=== PATIENT | female | born 1955 | race Caucasian/White ===

== ENCOUNTER 2017-04-23 14:41 | Emergency (ER) | payer MEDICARE, MEDICAID ==
[~2017-04-23] VITALS: Ht 167.6 cm; Wt 88.0 kg
[~2017-04-23 14:41] MED LIST: ADVA100A INH; LEVO88TA2 PO; LISI40TA PO; MEDR4PAK PO; PANT40TA3 PO; SIMV20TA PO; TEGR200T PO; TRAM50TA PO; VENL75TA PO
[2017-04-23 15:38] VITALS: BP 150/79; PULSE 66; RESP 18; TEMP 98.3; O2SAT 95
--- NOTE | 2017-04-23 15:44 | PD ---
HPI Chief Complaint: GI Complaint Time Seen by Provider: 15:43 Travel History International Travel<30 days: No Contact w/Intl Traveler<30days: No Traveled to known affect area: No History of Present Illness HPI 61-year-old female came to the emergency room with history of vomiting today 2- 3 that is nonbilious and nonbloody. Patient says she has been feeling weak for past 4-5 days and has been having dark color stool. She never noticed agueda blood in her stool. Vital signs were otherwise stable. Complaining of some epigastric pain that is nonradiating. PFSH Past Medical History Narrative Medical List of her past medical, surgical, social and family history was reviewed from the nursing note. Hx Anticoagulant Therapy: Yes (BABY ASA DAILY) Asthma: Yes Anxiety: Yes Depression: Yes Cardiac Catheterization: Yes (STENT) Cardiovascular Problems: Yes (HTN) Coronary Artery Disease: Yes Diabetes: No Diminished Hearing: No Deep Vein Thrombosis: Yes Fibromyalgia: Yes GERD: Yes Hypertension: Yes Respiratory: Yes (ASTHMA) Integumentary: Yes (SKIN BURN - DUE TO COOKING ) Seizures: Yes (LAST SEIZURE 12/29/2007) Thyroid Disease: Yes Tetanus Vaccination: < 5 Years Influenza Vaccination: Yes ?: Not Past Surgical History Coronary Stent: Yes Hysterectomy: Yes Other Surgery: Yes (SKIN GRAFTING, BREAST AUGMENTATION) Social History Alcohol Use: No Tobacco Use: No (QUIT 1985) Substance Use: No Allergies-Medications (Allergen,Severity, Reaction): Coded Allergies: Adhesives (Verified Allergy, Severe, 04/23/17) SKIN IRRITATION Dilantin (Verified Allergy, Severe, Hives, 04/23/17) Keppra (Verified Allergy, Unknown, 04/23/17) Codeine (Verified Adverse Reaction, Intermediate, ALTERED MENTAL STATUS, ) *MDRO Multi-Drug Resistant Organism (Verified Adverse Reaction, Unknown, ) ESBL+E.Coli (urine-09/02/16) Phenobarbital (Verified Adverse Reaction, Unknown, 04/23/17) Comments List of her allergies reviewed from the nursing note. Reported Meds & Prescriptions Reported Meds & Active Scripts Active Zofran Odt (Ondansetron Odt) 4 Mg Tab 4 Mg SL Q6HR PRN Simvastatin 20 Mg Tab 20 Mg PO DAILY Pantoprazole (Pantoprazole Sodium) 40 Mg Tab 40 Mg PO DAILY Effexor (Venlafaxine HCl) 75 Mg Tab 75 Mg PO BID Tramadol (Tramadol HCl) 50 Mg Tab 50 Mg PO Q8H PRN Lisinopril 40 Mg Tab 40 Mg PO DAILY Reported Aspirin 81 Mg Chew 81 Mg CHEW DAILY Tegretol (Carbamazepine) 200 Mg Tab 150 Mg PO BID Levothyroxine (Levothyroxine Sodium) 88 Mcg Tab 45 Mcg PO DAILY Advair Diskus Inh (Fluticasone-Salmeterol Inh) 100-50 Mcg/Blist Aer 1 Puff INH BID Rinse mouth after use. Narrative Medication List of her home medications reviewed from the nursing note. Review of Systems Except as stated in HPI: all other systems reviewed are Neg Physical Exam Narrative GENERAL: Awake, alert, moderate distress SKIN: Focused skin assessment warm/dry. HEAD: Atraumatic. Normocephalic. EYES: Pupils equal and round. No scleral icterus. No injection or drainage. ENT: No nasal bleeding or discharge. Dry mucous membrane NECK: Trachea midline. No JVD. CARDIOVASCULAR: Regular rate and rhythm. No murmur appreciated. RESPIRATORY: No accessory muscle use. Clear to auscultation. Breath sounds equal bilaterally. GASTROINTESTINAL: Abdomen soft, epigastric tenderness, nondistended. Hepatic and splenic margins not palpable. MUSCULOSKELETAL: No obvious deformities. No clubbing. No cyanosis. No edema. NEUROLOGICAL: Awake and alert. No obvious cranial nerve deficits. Motor grossly within normal limits. Normal speech. PSYCHIATRIC: Appropriate mood and affect; insight and judgment normal. Data Data Last Documented VS Vital Signs Date Time Temp Pulse Resp B/P Pulse Ox O2 Delivery O2 Flow Rate FiO2 04/23/17 19:01 99 04/23/17 18:46 76 18 192/84 04/23/17 17:26 Room Air 04/23/17 15:38 98.3 Orders Complete Blood Count With Diff (04/23/17 15:56) Comprehensive Metabolic Panel (04/23/17 15:56) Lipase (04/23/17 15:56) Urinalysis - C+S If Indicated (04/23/17 15:56) Ct Abd/Pel W/O Iv Contrast (04/23/17 15:56) Iv Access Insert/Monitor (04/23/17 15:56) Ecg Monitoring (04/23/17 15:56) Oximetry (04/23/17 15:56) Sodium Chlor 0.9% 1000 Ml Inj (Ns 1000 M (04/23/17 15:56) Sodium Chloride 0.9% Flush (Ns Flush) (04/23/17 16:00) Electrocardiogram (04/23/17 ) Troponin I (04/23/17 15:56) Chest, Single Ap (04/23/17 ) Ondansetron Inj (Zofran Inj) (04/23/17 16:30) Pantoprazole Inj (Protonix Inj) (04/23/17 16:30) Urine Culture (04/23/17 17:15) Labs Laboratory Tests Test 04/23/17 04/23/17 16:05 17:15 Sodium Level 133 MEQ/L Potassium Level 3.5 MEQ/L Chloride Level 96 MEQ/L Carbon Dioxide Level 25.4 MEQ/L Anion Gap 12 MEQ/L Blood Urea Nitrogen 12 MG/DL Creatinine 0.57 MG/DL Estimat Glomerular Filtration 107 ML/MIN Rate Random Glucose 102 MG/DL Calcium Level 8.7 MG/DL Total Bilirubin 0.3 MG/DL Aspartate Amino Transf 17 U/L (AST/SGOT) Alanine Aminotransferase 19 U/L (ALT/SGPT) Alkaline Phosphatase 121 U/L Troponin I LESS THAN 0.02 NG/ML Total Protein 7.8 GM/DL Albumin 3.9 GM/DL Lipase 79 U/L White Blood Count 4.7 TH/MM3 Red Blood Count 6.32 MIL/MM3 Hemoglobin 13.5 GM/DL Hematocrit 41.8 % Mean Corpuscular Volume 66.1 FL Mean Corpuscular Hemoglobin 21.3 PG Mean Corpuscular Hemoglobin 32.2 % Concent Red Cell Distribution Width 13.8 % Platelet Count 277 TH/MM3 Mean Platelet Volume 7.7 FL Neutrophils (%) (Auto) 80.1 % Lymphocytes (%) (Auto) 13.9 % Monocytes (%) (Auto) 5.3 % Eosinophils (%) (Auto) 0.2 % Basophils (%) (Auto) 0.5 % Neutrophils # (Auto) 3.8 TH/MM3 Lymphocytes # (Auto) 0.7 TH/MM3 Monocytes # (Auto) 0.2 TH/MM3 Eosinophils # (Auto) 0.0 TH/MM3 Basophils # (Auto) 0.0 TH/MM3 CBC Comment DIFF FINAL Differential Comment Urine Color YELLOW Urine Turbidity HAZY Urine pH 6.5 Urine Specific [place] 1.019 Urine Protein 30 mg/dL Urine Glucose (UA) NEG mg/dL Urine Ketones 40 mg/dL Urine Occult Blood NEG Urine Nitrite NEG Urine Bilirubin NEG Urine Urobilinogen LESS THAN 2.0 MG/DL Urine Leukocyte Esterase LARGE Urine RBC 3 /hpf Urine WBC 108 /hpf Urine WBC Clumps MOD Urine Squamous Epithelial <1 /hpf Cells Urine Bacteria MANY /hpf Urine Mucus MANY /lpf Microscopic Urinalysis Comment CULTURE INDICATED MDM Medical Decision Making Medical Screen Exam Complete: Yes Emergency Medical Condition: Yes Medical Record Reviewed: Yes Interpretation(s) Twelve-lead EKG was reviewed by me. Normal sinus rhythm, left axis deviation, LVH, nonspecific ST-T wave changes. Heart rate of 63 bpm. Differential Diagnosis Acute gastritis, acute pancreatitis, acute cholecystitis Narrative Course 4:22 PM awaiting for the blood test result. Patient is getting IV fluids and bolus. I'll go back and reassess her. 5:38 PM blood test results are within acceptable limit except for mild hyponatremia. ED scan does not show any acute abnormality. Waiting for the UA. Patient will be discharged home eventually. Procedures EKG Prior to Arrival: No HemaPrompt Point of Care Internal Pos. & Neg. Controls: Passed Fecal Specimen Occult Blood: Negative Diagnosis Primary Impression: Acute gastritis Qualified Code: K29.00 - Acute gastritis without hemorrhage, unspecified gastritis type Additional Impression: Dehydration Referrals: Primary Care Physician Additional Instructions: Please return to the ER if the condition worsens or any other new concerns. Otherwise follow-up with your primary care. Take the medication as per the prescription direction. Med/Other Pt SpecificInfo: Prescription(s) given Scripts Ondansetron Odt (Zofran Odt)4 Mg Tab4 Mg SL Q6HR PRN (Nausea/Vomiting) #12 TAB Ref 0 Prov:Tom Sierra MD 04/23/17 Disposition: 01 DISCHARGE HOME Condition: Stable Tom Sierra MD Apr 23, 2017 15:44
[2017-04-23] MEDS ORDERED: ASPI81CH CHEW (15:53)
[2017-04-23] MEDS ORDERED: SODIUM CHLOR 0.9% 1000 ML INJ 1,000 ML IV SCH (15:56)
[2017-04-23] MEDS ORDERED: SODIUM CHLORIDE 0.9% FLUSH 10 ML FLUSH IV FLUSH PRN (16:00)
[2017-04-23 16:30] VITALS: BP 153/79; PULSE 68; RESP 18; O2SAT 97
[2017-04-23] MEDS ORDERED: PANTOPRAZOLE SODIUM 40 MG VIAL IV PUSH ONE (16:30)
[2017-04-23] MEDS ORDERED: ONDANSETRON HCL 4 MG/2 ML VIAL IV PUSH ONE (16:30)
[2017-04-23 16:57] LABS: AUTOMATED NEUTROPHIL # 3.8 TH/MM3 (1.8-7.7); BASOPHIL % 0.5 % (0.0-2.0); EOSINOPHIL % 0.2 % (0.0-4.0); HEMATOCRIT 41.8 % (35.0-46.0); HEMO FLAGS DIFF FINAL; LYMPH % 13.9 % (9.0-44.0); LYMPHOCYTE # 0.7 TH/MM3 (1.0-4.8); MEAN CELL VOLUME 66.1 FL (80.0-100.0); MEAN CORPUSCULAR HEMOGLOBIN 21.3 PG (27.0-34.0); MEAN CORPUSCULAR HGB CONC 32.2 % (32.0-36.0); MONO % 5.3 % (0.0-8.0); NEUT % 80.1 % (16.0-70.0); PLATELET COUNT 277 TH/MM3 (150-450); RED BLOOD COUNT 6.32 MIL/MM3 (4.00-5.30); RED CELL DISTRIBUTION WIDTH 13.8 % (11.6-17.2); WHITE BLOOD COUNT 4.7 TH/MM3 (4.0-11.0)
--- NOTE | 2017-04-23 17:07 | RADRPT ---
EXAM DATE/TIME: 04/23/2017 16:42 [facility] COMPARISON: No previous studies available for comparison. INDICATIONS : Patient complains of blood in stool, abdominal pain and nausea. ORAL CONTRAST: No oral contrast ingested. RADIATION DOSE: 15.44 CTDIvol (mGy) MEDICAL HISTORY : Cardiovascular disease. Hypertension. SURGICAL HISTORY : None. ENCOUNTER: Initial ACUITY: 1 day PAIN SCALE: 5/10 LOCATION: Lower quadrant TECHNIQUE: Volumetric scanning of the abdomen and pelvis was performed. Using automated exposure control and ad justment of the mA and/or kV according to patient size, radiation dose was kept as low as reasonably achievable to obtain optimal diagnostic quality images. FINDINGS: There are calcified nonobstructing bilateral renal calculi. The largest calculus is noted on the left and measures 5 mm. No acute obstructive uropathy is noted. There is a left adrenal nodule measurin g 2.1 x 1.6 cm consistent with possible adrenal adenoma. Evaluation of the solid organs of the abdom en is limited by the lack of the intravenous contrast. No bowel obstruction is noted. The appendix is normal. The urinary bladder is unremarkable. Degenerative changes and scoliosis of the thoracolumb ar spine are noted. No calcified gallstone is noted within the gallbladder. An inferior vena cava f ilter is noted. The visualized lung bases demonstrate no nodule or mass. Fibrotic scarring is noted within the right lung base. Right breast implant is noted. CONCLUSION: 1. Calcified nonobstructing bilateral renal calculi. 2. Left adrenal nodule measuring 2.1 x 1.6 cm consistent with possible adrenal adenoma. 3. Degenerative changes and scoliosis of the thoracolumbar spine. Edward Mena MD on April 23, 2017 at 16:56 Board Certified Radiologist. This report was verified electronically.
[2017-04-23 17:12] LABS: ANION GAP 12 MEQ/L (5-15); BICARBONATE 25.4 MEQ/L (21.0-32.0); BLOOD UREA NITROGEN 12 MG/DL (7-18); CHLORIDE 96 MEQ/L (98-107); POTASSIUM 3.5 MEQ/L (3.5-5.1); SODIUM (NA) 133 MEQ/L (136-145)
[2017-04-23 17:13] LABS: ALT (GPT) 19 U/L (10-53); AST (GOT) 17 U/L (15-37); GLOMERULAR FILTRATION RATE 107 ML/MIN (>89)
[2017-04-23 17:17] LABS: ALKALINE PHOSPHATASE 121 U/L (45-117); TOTAL BILIRUBIN ADULT 0.3 MG/DL (0.2-1.0)
--- NOTE | 2017-04-23 17:18 | RADRPT ---
EXAM DATE/TIME: 04/23/2017 16:18 [facility] COMPARISON: No previous studies available for comparison. INDICATIONS : Chest pain. MEDICAL HISTORY : Epilepsy SURGICAL HISTORY : loretta nerve stimulator ENCOUNTER: Initial ACUITY: 1 day PAIN SCORE: 8/10 LOCATION: Bilateral chest FINDINGS: There is a vague history of stimulator in place. Minimal airspace disease in the left lung base with associated volume loss likely reflects atelectasis. Cardiomegaly sternal contours are within normal l imits. Bony thorax is intact. CONCLUSION: 1. Minimal left basilar atelectasis. Radames Almanzar MD on April 23, 2017 at 17:15 Board Certified Radiologist. This report was verified electronically.
[2017-04-23 17:26] VITALS: BP 158/74; PULSE 66; RESP 16; O2SAT 99
[2017-04-23] MEDS ORDERED: ZOFR4TAB3 SL (17:40)
[2017-04-23 17:51] LABS: BLOOD, URINE NEG (NEG); COMMENT (UR) CULTURE INDICATED; CULTURE IF INDICATED CULTURE INDICATED; GLUCOSE,URINE NEG (NEG); KETONE, URINE 40 mg/dL (NEG); MUCUS URINE MANY /lpf (OCC); NITRITE,URINE NEG (NEG); PH, URINE 6.5 (5.0-8.5); SQUAMOUS EPITHELIAL CELL URINE <1 /hpf (0-5); URINE COLOR YELLOW (YELLW/STRAW)
[2017-04-23 17:52] LABS: BACTERIA, URINE MANY /hpf
[2017-04-23 18:46] VITALS: BP 192/84; PULSE 76; RESP 18; O2SAT 99
--- NOTE | 2017-04-24 22:46 | EKG ---
Date Performed: 04/23/2017 Time Performed: 16:35:07 PTAGE: 61 years EKG: Sinus rhythm LEFT VENTRICULAR HYPERTROPHY AND ST-T CHANGE ABNORMAL ECG PREVIOUS TRACING : 11/05/2016 16.24 DOCTOR: Steven Pennington Interpretating Date/Time 04/24/2017 22:44:13
== END 2017-04-23 19:04 | disposition home or self-care (01) ==
LOC: NEDAMB 14:41 → NEPE 19:04
DX: K29.00 Acute gastritis without bleeding (principal); E86.0 Dehydration; I51.7 Cardiomegaly; R53.1 Weakness; B96.20 Unspecified Escherichia coli [E. coli] as the cause of diseases classified elsewhere; R82.90 Unspecified abnormal findings in urine; J45.909 Unspecified asthma, uncomplicated; I10 Essential (primary) hypertension; I25.10 Atherosclerotic heart disease of native coronary artery without angina pectoris; Z86.718 Personal history of other venous thrombosis and embolism; Z79.01 Long term (current) use of anticoagulants; Z95.5 Presence of coronary angioplasty implant and graft; Z87.891 Personal history of nicotine dependence
CPT/HCPCS: 71010; 74176; 80053; 81001; 83690; 84484; 85025; 87077; 87086; 87186; 93005; 96361; 96374; 96375; 99285; C9113; J2405; J7030

== ENCOUNTER 2017-05-11 14:30 | Emergency (ER) | payer MEDICARE, MEDICAID ==
[~2017-05-11] VITALS: Ht 165.1 cm; Wt 70.0 kg
[~2017-05-11 14:30] MED LIST changes: +ASPI81CH CHEW; -MEDR4PAK PO; +ZOFR4TAB3 SL
[2017-05-11 14:34] VITALS: BP 148/82; PULSE 78; RESP 17; O2SAT 98
[2017-05-11 14:36] VITALS: BP 175/79; PULSE 77; RESP 16; TEMP 98.2; O2SAT 98
[2017-05-11] MEDS ORDERED: SODIUM CHLOR 0.9% 1000 ML INJ 1,000 ML IV SCH (14:56)
[2017-05-11] MEDS ORDERED: ONDANSETRON HCL 4 MG/2 ML VIAL IVP ONE (15:00)
[2017-05-11] MEDS ORDERED: SODIUM CHLORIDE 0.9% FLUSH 10 ML FLUSH IV FLUSH PRN (15:00)
--- NOTE | 2017-05-11 15:04 | PD ---
HPI Chief Complaint: GI Complaint Time Seen by Provider: 15:00 Travel History International Travel<30 days: No Contact w/Intl Traveler<30days: No Traveled to known affect area: No History of Present Illness HPI Patient is a 61-year-old female presenting to emergency for evaluation of nausea , vomiting, diarrhea. She states her symptoms started at 1 AM this morning after she took her dose of tramadol. She states that she states had ongoing vomiting whenever she attempts to eat anything. She denies any abdominal pain, dysuria, fevers, chest pain or shortness of breath. PFSH Past Medical History Hx Anticoagulant Therapy: Yes (BABY ASA DAILY) Asthma: Yes Anxiety: Yes Depression: Yes Cardiac Catheterization: Yes (STENT) Cardiovascular Problems: Yes (HTN) Coronary Artery Disease: Yes Diabetes: No Diminished Hearing: No Deep Vein Thrombosis: Yes Fibromyalgia: Yes GERD: Yes Hypertension: Yes Seizures: Yes (LAST SEIZURE 12/29/2007) Thyroid Disease: Yes Past Surgical History Coronary Stent: Yes Hysterectomy: Yes Other Surgery: Yes (SKIN GRAFTING, BREAST AUGMENTATION) Social History Alcohol Use: No Tobacco Use: No (QUIT 1985) Substance Use: No Allergies-Medications (Allergen,Severity, Reaction): Coded Allergies: Adhesives (Verified Allergy, Severe, 05/11/17) SKIN IRRITATION Dilantin (Verified Allergy, Severe, Hives, 05/11/17) Keppra (Verified Allergy, Unknown, 05/11/17) Codeine (Verified Adverse Reaction, Intermediate, ALTERED MENTAL STATUS, ) *MDRO Multi-Drug Resistant Organism (Verified Adverse Reaction, Unknown, ) ESBL E.Coli (urine-09/02/16 & 04/23/17) Phenobarbital (Verified Adverse Reaction, Unknown, 05/11/17) Reported Meds & Prescriptions Reported Meds & Active Scripts Active Levothyroxine (Levothyroxine Sodium) 88 Mcg Tab 45 Mcg PO DAILY Simvastatin 20 Mg Tab 20 Mg PO DAILY Pantoprazole (Pantoprazole Sodium) 40 Mg Tab 40 Mg PO DAILY Effexor (Venlafaxine HCl) 75 Mg Tab 75 Mg PO BID Tramadol (Tramadol HCl) 50 Mg Tab 50 Mg PO Q8H PRN Lisinopril 40 Mg Tab 40 Mg PO DAILY Reported Aspirin 81 Mg Chew 81 Mg CHEW DAILY Tegretol (Carbamazepine) 200 Mg Tab 150 Mg PO TID Advair Diskus Inh (Fluticasone-Salmeterol Inh) 100-50 Mcg/Blist Aer 1 Puff INH BID Rinse mouth after use. Review of Systems Except as stated in HPI: all other systems reviewed are Neg General / Constitutional: No: Fever, Chills HENT: No: Headaches, Lightheadedness Cardiovascular: No: Chest Pain or Discomfort Respiratory: No: Shortness of Breath Gastrointestinal: Positive: Nausea, Vomiting, Diarrhea, No: Abdominal Pain, Changes in Bowel Habits, Indigestion, Loss of Appetite Genitourinary: No: Dysuria Musculoskeletal: No: Myalgias Physical Exam Narrative GENERAL: Overweight, well-developed, alert female. Resting comfortably in no acute distress. SKIN: Focused skin assessment warm/dry. HEAD: Atraumatic. Normocephalic. EYES: Pupils equal and round. No scleral icterus. No injection or drainage. ENT: No nasal bleeding or discharge. Mucous membranes pink and moist. NECK: Trachea midline. No JVD. CARDIOVASCULAR: Regular rate and rhythm. No murmur appreciated. RESPIRATORY: No accessory muscle use. Clear to auscultation. Breath sounds equal bilaterally. GASTROINTESTINAL: Abdomen soft, non-tender, nondistended. Hepatic and splenic margins not palpable. Positive bowel sounds, no rebound, no guarding MUSCULOSKELETAL: No obvious deformities. No clubbing. No cyanosis. No edema. NEUROLOGICAL: Awake and alert. No obvious cranial nerve deficits. Motor grossly within normal limits. Normal speech. PSYCHIATRIC: Appropriate mood and affect; insight and judgment normal. Data Data Last Documented VS Vital Signs Date Time Temp Pulse Resp B/P Pulse Ox O2 Delivery O2 Flow Rate FiO2 05/11/17 15:33 75 16 177/82 98 05/11/17 14:36 98.2 Orders Complete Blood Count With Diff (05/11/17 14:56) Comprehensive Metabolic Panel (05/11/17 14:56) Lipase (05/11/17 14:56) Lactic Acid (05/11/17 14:56) Urinalysis - C+S If Indicated (05/11/17 14:56) Iv Access Insert/Monitor (05/11/17 14:56) Ecg Monitoring (05/11/17 14:56) Oximetry (05/11/17 14:56) Ondansetron Inj (Zofran Inj) (05/11/17 15:00) Sodium Chlor 0.9% 1000 Ml Inj (Ns 1000 M (05/11/17 14:56) Sodium Chloride 0.9% Flush (Ns Flush) (05/11/17 15:00) Urine Culture (05/11/17 15:25) Labs Laboratory Tests Test 05/11/17 05/11/17 15:20 15:25 White Blood Count 4.9 TH/MM3 Red Blood Count 6.85 MIL/MM3 Hemoglobin 14.2 GM/DL Hematocrit 46.4 % Mean Corpuscular Volume 67.7 FL Mean Corpuscular Hemoglobin 20.7 PG Mean Corpuscular Hemoglobin 30.5 % Concent Red Cell Distribution Width 14.8 % Platelet Count 275 TH/MM3 Mean Platelet Volume 7.3 FL Neutrophils (%) (Auto) 78.6 % Lymphocytes (%) (Auto) 14.2 % Monocytes (%) (Auto) 6.3 % Eosinophils (%) (Auto) 0.4 % Basophils (%) (Auto) 0.5 % Neutrophils # (Auto) 3.9 TH/MM3 Lymphocytes # (Auto) 0.7 TH/MM3 Monocytes # (Auto) 0.3 TH/MM3 Eosinophils # (Auto) 0.0 TH/MM3 Basophils # (Auto) 0.0 TH/MM3 CBC Comment AUTO DIFF Differential Total Cells 100 Counted Neutrophils % (Manual) 84 % Band Neutrophils % 3 % Lymphocytes % 9 % Monocytes % 3 % Neutrophils # (Manual) 4.3 TH/MM3 Nucleated Red Blood Cells 1 /100 WBC Differential Comment FINAL DIFF MANUAL Plasma Cells 1 % Platelet Estimate NORMAL Platelet Morphology Comment NORMAL Ovalocytes 1+ Sodium Level 137 MEQ/L Potassium Level 4.0 MEQ/L Chloride Level 99 MEQ/L Carbon Dioxide Level 29.5 MEQ/L Anion Gap 9 MEQ/L Blood Urea Nitrogen 10 MG/DL Creatinine 0.72 MG/DL Estimat Glomerular Filtration 82 ML/MIN Rate Random Glucose 119 MG/DL Lactic Acid Level 1.3 mmol/L Calcium Level 9.4 MG/DL Total Bilirubin 0.3 MG/DL Aspartate Amino Transf 21 U/L (AST/SGOT) Alanine Aminotransferase 29 U/L (ALT/SGPT) Alkaline Phosphatase 125 U/L Total Protein 8.7 GM/DL Albumin 4.2 GM/DL Lipase 112 U/L Urine Color YELLOW Urine Turbidity HAZY Urine pH 7.0 Urine Specific [place] 1.023 Urine Protein 100 mg/dL Urine Glucose (UA) NEG mg/dL Urine Ketones NEG mg/dL Urine Occult Blood NEG Urine Nitrite NEG Urine Bilirubin NEG Urine Urobilinogen LESS THAN 2.0 MG/DL Urine Leukocyte Esterase MOD Urine RBC 6 /hpf Urine WBC 9 /hpf Urine Squamous Epithelial 2 /hpf Cells Urine Amorphous Sediment RARE Urine Mucus MANY /lpf Microscopic Urinalysis Comment CULTURE INDICATED MDM Medical Decision Making Medical Screen Exam Complete: Yes Emergency Medical Condition: Yes Interpretation(s) Laboratory Tests Test 05/11/17 05/11/17 15:20 15:25 White Blood Count 4.9 TH/MM3 Red Blood Count 6.85 MIL/MM3 Hemoglobin 14.2 GM/DL Hematocrit 46.4 % Mean Corpuscular Volume 67.7 FL Mean Corpuscular Hemoglobin 20.7 PG Mean Corpuscular Hemoglobin 30.5 % Concent Red Cell Distribution Width 14.8 % Platelet Count 275 TH/MM3 Mean Platelet Volume 7.3 FL Neutrophils (%) (Auto) 78.6 % Lymphocytes (%) (Auto) 14.2 % Monocytes (%) (Auto) 6.3 % Eosinophils (%) (Auto) 0.4 % Basophils (%) (Auto) 0.5 % Neutrophils # (Auto) 3.9 TH/MM3 Lymphocytes # (Auto) 0.7 TH/MM3 Monocytes # (Auto) 0.3 TH/MM3 Eosinophils # (Auto) 0.0 TH/MM3 Basophils # (Auto) 0.0 TH/MM3 CBC Comment AUTO DIFF Differential Total Cells 100 Counted Neutrophils % (Manual) 84 % Band Neutrophils % 3 % Lymphocytes % 9 % Monocytes % 3 % Neutrophils # (Manual) 4.3 TH/MM3 Nucleated Red Blood Cells 1 /100 WBC Differential Comment FINAL DIFF MANUAL Plasma Cells 1 % Platelet Estimate NORMAL Platelet Morphology Comment NORMAL Ovalocytes 1+ Sodium Level 137 MEQ/L Potassium Level 4.0 MEQ/L Chloride Level 99 MEQ/L Carbon Dioxide Level 29.5 MEQ/L Anion Gap 9 MEQ/L Blood Urea Nitrogen 10 MG/DL Creatinine 0.72 MG/DL Estimat Glomerular Filtration 82 ML/MIN Rate Random Glucose 119 MG/DL Lactic Acid Level 1.3 mmol/L Calcium Level 9.4 MG/DL Total Bilirubin 0.3 MG/DL Aspartate Amino Transf 21 U/L (AST/SGOT) Alanine Aminotransferase 29 U/L (ALT/SGPT) Alkaline Phosphatase 125 U/L Total Protein 8.7 GM/DL Albumin 4.2 GM/DL Lipase 112 U/L Urine Color YELLOW Urine Turbidity HAZY Urine pH 7.0 Urine Specific [place] 1.023 Urine Protein 100 mg/dL Urine Glucose (UA) NEG mg/dL Urine Ketones NEG mg/dL Urine Occult Blood NEG Urine Nitrite NEG Urine Bilirubin NEG Urine Urobilinogen LESS THAN 2.0 MG/DL Urine Leukocyte Esterase MOD Urine RBC 6 /hpf Urine WBC 9 /hpf Urine Squamous Epithelial 2 /hpf Cells Urine Amorphous Sediment RARE Urine Mucus MANY /lpf Microscopic Urinalysis Comment CULTURE INDICATED Vital Signs Date Time Temp Pulse Resp B/P Pulse Ox O2 Delivery O2 Flow Rate FiO2 05/11/17 14:36 98.2 77 16 175/79 98 05/11/17 14:34 78 17 148/82 98 Differential Diagnosis Gastritis versus gastroenteritis versus medication side effect versus foodborne illness versus cholecystitis versus pancreatitis versus obstruction Narrative Course Patient is a 61-year-old female that presented to the emergency evaluation of nausea and vomiting that started after she took tramadol 1 AM this morning. Patient had an episode of nonbilious vomiting in the emergency department. She was given IV fluids, Zofran, labs were ordered and pending. Her vital signs are stable. Urinalysis with elevated red blood cells, white blood cells, reflux culture pending. Chemistry is unremarkable, lactic acid is 1.3, CBC with no acute issues. She reports improvement after Zofran administration. She has no further episodes of vomiting in the emergency department. Patient will be discharged home with Zofran, she will be given a prescription for Keflex. She is encouraged to follow-up with primary doctor, maintain adequate fluid intake, maintain a bland the residue diet and increase as tolerated. She was encouraged to avoid tramadol and discuss possible replacement with her primary doctor she verbalized understanding of these instructions. Patient is stable for discharge. Diagnosis Primary Impression: Nausea and vomiting Qualified Code: R11.2 - Non-intractable vomiting with nausea, unspecified vomiting type Additional Impression: UTI (urinary tract infection) Qualified Code: N39.0 - Urinary tract infection with hematuria, site unspecified Referrals: Primary Care Physician 2 days Patient Instructions: Acute Nausea and Vomiting (ED), General Instructions, Urinary Tract Infection in Women (ED) Additional Instructions: Follow-up with her primary doctor Take medications as directed Maintain a bland low-residue diet, increase as tolerated Avoid caffeine, fatty, fried foods, acidic foods such as orange juice Return to emergency department for any new or worsening symptoms Med/Other Pt SpecificInfo: Prescription(s) given Scripts Cephalexin (Keflex)500 Mg [id number] Mg PO Q12H 7 Days Ref 0 Prov:Megan Tillman 05/11/17 Ondansetron Odt (Zofran Odt)4 Mg Tab4 Mg SL Q6HR PRN (Nausea/Vomiting) 3 Days Ref 0 Prov:Megan Tillman 05/11/17 Disposition: 01 DISCHARGE HOME Condition: Stable Megan Tillman May 11, 2017 15:04
[2017-05-11 15:33] VITALS: BP 177/82; PULSE 75; RESP 16; O2SAT 98
[2017-05-11 15:35] LABS: AUTOMATED NEUTROPHIL # 3.9 TH/MM3 (1.8-7.7); BASOPHIL % 0.5 % (0.0-2.0); EOSINOPHIL % 0.4 % (0.0-4.0); HEMATOCRIT 46.4 % (35.0-46.0); LYMPH % 14.2 % (9.0-44.0); LYMPHOCYTE # 0.7 TH/MM3 (1.0-4.8); MEAN CELL VOLUME 67.7 FL (80.0-100.0); MEAN CORPUSCULAR HEMOGLOBIN 20.7 PG (27.0-34.0); MEAN CORPUSCULAR HGB CONC 30.5 % (32.0-36.0); MONO % 6.3 % (0.0-8.0); NEUT % 78.6 % (16.0-70.0); PLATELET COUNT 275 TH/MM3 (150-450); RED BLOOD COUNT 6.85 MIL/MM3 (4.00-5.30); RED CELL DISTRIBUTION WIDTH 14.8 % (11.6-17.2); WHITE BLOOD COUNT 4.9 TH/MM3 (4.0-11.0)
[2017-05-11 15:38] LABS: HEMO FLAGS AUTO DIFF
[2017-05-11 16:10] LABS: ALT (GPT) 29 U/L (10-53); ANION GAP 9 MEQ/L (5-15); AST (GOT) 21 U/L (15-37); BICARBONATE 29.5 MEQ/L (21.0-32.0); BLOOD UREA NITROGEN 10 MG/DL (7-18); CHLORIDE 99 MEQ/L (98-107); GLOMERULAR FILTRATION RATE 82 ML/MIN (>89); SODIUM (NA) 137 MEQ/L (136-145)
[2017-05-11 16:12] LABS: ALKALINE PHOSPHATASE 125 U/L (45-117); TOTAL BILIRUBIN ADULT 0.3 MG/DL (0.2-1.0)
[2017-05-11 16:33] LABS: BANDS 3 % (0-6); CORRECTED NUCLEATED RBC 1 /100 WBC (0-0); NEUTROPHIL # MANUAL DIFF 4.3 TH/MM3 (1.8-7.7); PLASMA CELLS 1 % (0-0); POLYS (SEG NEUTROPHILS) 84 % (16-70); WBC DIFF SAMPLE 100
[2017-05-11 16:34] LABS: OVALOCYTES 1+ (NORMAL); PLATELET ESTIMATE SMEAR NORMAL (NORMAL); PLATELET MORPHOLOGY NORMAL (NORMAL); SCAN/DIFF FINAL DIFF MANUAL
[2017-05-11 16:36] LABS: BLOOD, URINE NEG (NEG); COMMENT (UR) CULTURE INDICATED; CULTURE IF INDICATED CULTURE INDICATED; GLUCOSE,URINE NEG (NEG); KETONE, URINE NEG (NEG); MUCUS URINE MANY /lpf (OCC); NITRITE,URINE NEG (NEG); SQUAMOUS EPITHELIAL CELL URINE 2 /hpf (0-5); URINE COLOR YELLOW (YELLW/STRAW)
--- NOTE | 2017-05-11 16:42 | PD ---
Data Data Last Documented VS Vital Signs Date Time Temp Pulse Resp B/P Pulse Ox O2 Delivery O2 Flow Rate FiO2 05/11/17 15:33 75 16 177/82 98 05/11/17 14:36 98.2 Orders Complete Blood Count With Diff (05/11/17 14:56) Comprehensive Metabolic Panel (05/11/17 14:56) Lipase (05/11/17 14:56) Lactic Acid (05/11/17 14:56) Urinalysis - C+S If Indicated (05/11/17 14:56) Iv Access Insert/Monitor (05/11/17 14:56) Ecg Monitoring (05/11/17 14:56) Oximetry (05/11/17 14:56) Ondansetron Inj (Zofran Inj) (05/11/17 15:00) Sodium Chlor 0.9% 1000 Ml Inj (Ns 1000 M (05/11/17 14:56) Sodium Chloride 0.9% Flush (Ns Flush) (05/11/17 15:00) Labs Laboratory Tests Test 05/11/17 15:20 White Blood Count 4.9 TH/MM3 Red Blood Count 6.85 MIL/MM3 Hemoglobin 14.2 GM/DL Hematocrit 46.4 % Mean Corpuscular Volume 67.7 FL Mean Corpuscular Hemoglobin 20.7 PG Mean Corpuscular Hemoglobin 30.5 % Concent Red Cell Distribution Width 14.8 % Platelet Count 275 TH/MM3 Mean Platelet Volume 7.3 FL Neutrophils (%) (Auto) 78.6 % Lymphocytes (%) (Auto) 14.2 % Monocytes (%) (Auto) 6.3 % Eosinophils (%) (Auto) 0.4 % Basophils (%) (Auto) 0.5 % Neutrophils # (Auto) 3.9 TH/MM3 Lymphocytes # (Auto) 0.7 TH/MM3 Monocytes # (Auto) 0.3 TH/MM3 Eosinophils # (Auto) 0.0 TH/MM3 Basophils # (Auto) 0.0 TH/MM3 CBC Comment AUTO DIFF Differential Total Cells 100 Counted Neutrophils % (Manual) 84 % Band Neutrophils % 3 % Lymphocytes % 9 % Monocytes % 3 % Neutrophils # (Manual) 4.3 TH/MM3 Nucleated Red Blood Cells 1 /100 WBC Differential Comment FINAL DIFF MANUAL Plasma Cells 1 % Platelet Estimate NORMAL Platelet Morphology Comment NORMAL Ovalocytes 1+ Sodium Level 137 MEQ/L Potassium Level 4.0 MEQ/L Chloride Level 99 MEQ/L Carbon Dioxide Level 29.5 MEQ/L Anion Gap 9 MEQ/L Blood Urea Nitrogen 10 MG/DL Creatinine 0.72 MG/DL Estimat Glomerular Filtration 82 ML/MIN Rate Random Glucose 119 MG/DL Lactic Acid Level 1.3 mmol/L Calcium Level 9.4 MG/DL Total Bilirubin 0.3 MG/DL Aspartate Amino Transf 21 U/L (AST/SGOT) Alanine Aminotransferase 29 U/L (ALT/SGPT) Alkaline Phosphatase 125 U/L Total Protein 8.7 GM/DL Albumin 4.2 GM/DL Lipase 112 U/L [facility] Supervised Visit with AFSHIN: Yes Narrative Course The history, exam, and medical decision-making in the associated midlevel provider note were completed with my assistance. I reviewed and agree with the findings presented. I attest that I had a [id number] encounter with the patient on the same day, and personally performed and documented my assessment and findings in the medical record. *My assessment and Findings: This is a 61-year-old female who presents to the emergency department with nausea vomiting and diarrhea that's been going on since this morning. She was placed on a monitor and an IV was established. Labs are obtained which were all reassuring. She has a benign abdominal exam. She just had CT imaging performed at her recent ER visit. I don't think imaging is warranted at this time. She feels much better. I think she can be discharged home. She'll likely has gastroenteritis. Mirian Call MD May 11, 2017 16:41
[2017-05-11] MEDS ORDERED: CEPH-460 PO (16:50)
[2017-05-11] MEDS ORDERED: ZOFR4TAB3 SL (16:50)
== END 2017-05-11 17:25 | disposition home or self-care (01) ==
LOC: NEPD 14:30
DX: R11.2 Nausea with vomiting, unspecified (principal); N39.0 Urinary tract infection, site not specified; B96.89 Other specified bacterial agents as the cause of diseases classified elsewhere; I10 Essential (primary) hypertension
CPT/HCPCS: 80053; 81001; 83605; 83690; 85007; 85027; 87086; 96361; 96374; 99284; J2405; J7030

== ENCOUNTER 2017-12-06 13:41 | Emergency (ER) | payer MEDICARE, MEDICAID ==
[~2017-12-06] VITALS: Ht 162.6 cm; Wt 91.0 kg
[~2017-12-06 13:41] MED LIST changes: +ASPI-516 CHEW; -ASPI81CH CHEW; +CEPH-460 PO
[2017-12-06 13:43] VITALS: BP 139/73; PULSE 92; RESP 14; TEMP 99.5; O2SAT 96
== END 2017-12-06 16:06 | disposition left against medical advice (07) ==
LOC: NED 13:41
DX: J98.9 Respiratory disorder, unspecified (principal)
CPT/HCPCS: 99281